=== PATIENT | female | born 1950 | race Caucasian/White ===

== ENCOUNTER 2019-04-11 11:07 | Emergency (ER) | payer MEDICARE ==
[2019-04-11 11:22] VITALS: BP 112/66
--- NOTE | 2019-04-11 11:36 | UC ---
Throat Pain/Nasal Matt HPI - HPI Summary HPI Summary: 68-year-old female who has 2 complaints. The first is she has had postnasal drainage, sinus pressure and head congestion with yellowish nasal coryza over the past 3-4 weeks which has been worsening over the past few days. Second complaint is that she ate some custard yesterday and had some abdominal bloating and some left lower quadrant abdominal pain which she attributes to her typical diverticulitis. She states she had a fever during the night which she has had in the past with diverticulitis flareups and she feels mildly better today but continues to have the abdominal discomfort however with improvement today. He denies any vomiting or diarrhea. - History of Current Complaint Chief Complaint: UCGeneralIllness Stated Complaint: RESP COMPLAINT Time Seen by Provider: 04/11/19 11:24 Hx Obtained From: Patient ?: No Onset/Duration: Gradual Onset Severity: Mild Pain Intensity: 3 Cough: None Associated Signs & Symptoms: Positive: Sinus Discomfort, Nasal Discharge, Other - Abdominal bloating last night with some left lower quadrant abdominal discomfort which has improved today. - Allergies/Home Medications Allergies/Adverse Reactions: Allergies Allergy/AdvReac Type Severity Reaction Status Date / Time No Known Allergies Allergy Verified 04/11/19 11:13 PMH/Surg Hx/FS Hx/Imm Hx Previously Healthy: Yes GI/ History: Diverticulitis - Surgical History Surgical History: Yes Surgery Procedure, Year, and Place: - Family History Known Family History: Positive: Non-Contributory - Social History Alcohol Use: Daily Substance Use Type: None Smoking Status (MU): Former Smoker Review of Systems All Other Systems Reviewed And Are Negative: Yes Constitutional: Positive: Fever - Patient had a fever last evening during the night however not today. ENT: Positive: Nasal Discharge, Sinus Congestion, Sinus Pain/Tenderness - Nasal congestion and sinus pressure over the past few weeks Respiratory: Positive: Cough - Patient states occasionally she'll cough but she thinks is because of postnasal drainage. Gastrointestinal: Positive: Abdominal Pain - Patient had generalized abdominal bloating last evening with generalized discomfort however more on the left lower quadrant today. Is Patient Immunocompromised?: No Physical Exam Triage Information Reviewed: Yes Appearance: No Pain Distress, Well-Nourished Vital Signs: Initial Vital Signs Temp 98.1 F 04/11/19 11:14 Pulse 78 04/11/19 11:14 Resp 18 12/24/19 11:14 BP 112/66 04/11/19 11:14 Pulse Ox 99 04/11/19 11:14 Vital Signs Reviewed: Yes Eyes: Positive: Conjunctiva Clear ENT: Positive: Pharynx normal - Yellow postnasal drainage, Nasal congestion, Nasal drainage - Yellow purulent nasal coryza., TMs normal, Sinus tenderness - Tender over the left maxillary sinus., Uvula midline Neck: Positive: Supple, Nontender, No Lymphadenopathy Respiratory: Positive: Lungs clear, Normal breath sounds, No respiratory distress, No accessory muscle use Cardiovascular: Positive: RRR, No Murmur, Pulses Normal, Brisk Capillary Refill Abdomen Description: Positive: No Organomegaly, Soft, Other: - Mild tenderness on palpation mostly in the left lower abdominal quadrant. No rigidity, rebound or guarding.. Negative: CVA Tenderness (L), Distended, Guarding, Hepatomegaly, Splenomegaly Bowel Sounds: Positive: Present Musculoskeletal Exam: Normal Neurological Exam: Normal Psychological Exam: Normal Skin Exam: Normal Throat Pain/Nasal Course/Dx - Course Course Of Treatment: Patient is comfortable here. I am going to treat her with Augmentin which will help treat the sinus infection as well as the diverticulitis however I did advise her that if she has any worsening symptoms over the next 24-48 hours or even later in the week she is to go to the emergency room for further treatment. Patient is agreeable to this plan of action. - Differential Dx/Diagnosis Provider Diagnosis: Sinusitis, Diverticulitis Discharge ED - Sign-Out/Discharge Documenting (check all that apply): Patient Departure All imaging exams completed and their final reports reviewed: No Studies - Discharge Plan Condition: Good Disposition: HOME Prescriptions: Amoxicillin/Clavulanate TAB* [Augmentin TAB 875*] 875 mg PO BID 10 Days #20 tab Patient Education Materials: Diverticulitis (ED), Sinusitis (ED), Diverticulitis Diet (ED) Referrals: Gloria Funk MD [Primary Care Provider] - Additional Instructions: Take the Augmentin with food. Go to the emergency room if you have any worsening symptoms as far as abdominal pain is concerned. - Billing Disposition and Condition Condition: GOOD Disposition: Home
== END 2019-04-11 11:45 | disposition home or self-care (01) ==
LOC: UCEAST 11:07
DX: J32.9 Chronic sinusitis, unspecified (principal); K57.92 Diverticulitis of intestine, part unspecified, without perforation or abscess without bleeding; R05 Cough; R10.9 Unspecified abdominal pain; R50.9 Fever, unspecified; Z87.891 Personal history of nicotine dependence
CPT/HCPCS: 99211; G0463